=== PATIENT | male | born 1945 | race Caucasian/White ===

== ENCOUNTER 2016-10-26 20:50 | Emergency (ER) | payer BC, MEDICARE ==
[2016-10-26] MEDS ORDERED: 0.9 % SODIUM CHLORIDE 1,000 ML BAG IV ONE (22:05)
[2016-10-26] MEDS ORDERED: HYDROMORPHONE HCL 1 MG/ML CPJ IVP ONE ×2 (22:05→23:06)
[2016-10-26 22:43] LABS: HEMATOCRIT 43.7 % (42.0-52.0); MEAN CELL VOLUME 100.7 fl (81-97); MEAN CORPUSCULAR HGB CONC 34.3 g/dl (32-36); MEAN PLATELET VOLUME 9.1 fl (7.4-10.4); PLATELET COUNT 208 K/uL (130-400); RED BLOOD COUNT 4.34 M/uL (4.40-5.70); WHITE BLOOD COUNT W/O DIFF 14.5 K/uL (4.2-12.2)
[2016-10-26 22:51] LABS: MEAN CORPUSCULAR HEMOGLOBIN 34.5 pg (27-33)
[2016-10-26 23:04] LABS: ALBUMIN 4.2 gm/dL (3.5-5.0); ALKALINE PHOSPHATASE 99 U/L (38-126); ALT/SGPT 28 U/L (21-72); ANION GAP 10.3 (7-16); AST/SGOT 18 U/L (17-59); BLOOD UREA NITROGEN 22 mg/dL (9-20); CARBON DIOXIDE 28.7 mmol/L (22-30); CREATININE 1.1 mg/dL (0.66-1.25); EST GLOMERULAR FILTRATION RATE > 60 ml/min; GLUCOSE,RANDOM 139 mg/dL (70-110); LIPASE 59 U/L (23-300); TOTAL PROTEIN 7.2 gm/dL (6.3-8.2)
[2016-10-27] MEDS ORDERED: KETOROLAC 30 MG/ML VIAL IVP ONE (01:04)
[2016-10-27 01:26] LABS: URINE APPEARANCE CLEAR; URINE BILIRUBIN NEGATIVE (NEGATIVE); URINE BLOOD LARGE (NEGATIVE); URINE COLOR YELLOW; URINE GLUCOSE (UA) NEGATIVE (NEGATIVE); URINE KETONE NEGATIVE (NEGATIVE); URINE LEUKOCYTE ESTERASE NEGATIVE (NEGATIVE); URINE NITRITE NEGATIVE (NEGATIVE); URINE PROTEIN NEGATIVE (NEGATIVE); URINE UROBILINOGEN 0.2 E.U./dL (0.20 - 1.00)
[2016-10-27 01:37] LABS: URINE RBC 21 - 35 (NONE SEEN)
[2016-10-27 01:38] LABS: URINE WBC 0 - 2 (0-2/hpf)
[2016-10-27] MEDS ORDERED: ALBUTEROL SULFATE (0.083%) 2.5 MG/3 ML NEB INH ONE (01:45)
--- NOTE | 2016-10-27 02:06 | Emergency Department Record ---
History of Present Illness - General Chief Complaint: Abdominal Pain Stated Complaint: SHARP PAIN IN RT SIDE Time Seen by Provider: 10/26/16 22:00 Source: Patient Mode of Arrival: Ambulatory Limitations: No limitations - History of Present Illness Initial Comments: pt has severe ruq pain since eating a cheeseburger. he has nausea and had a bout of diarrhea. MD Complaint: Abdominal pain Onset/Timin -: Hour(s) Location: RUQ Radiation: None Migration to: No migration Severity: Moderate Quality: Sharp Consistency: Constant Improves With: Nothing Worsens With: Nothing Associated Symptoms: Nausea - Related Data Home Medications Medication Instructions Recorded Confirmed Last Taken Aspirin 81 mg PO DAILY 10/26/16 10/26/16 Unknown Atorvastatin Calcium 40 mg PO QPM 10/26/16 10/26/16 Unknown Citalopram Hydrobromide 40 mg PO DAILY 10/26/16 10/26/16 Unknown [Citalopram HBr] Clonazepam 0.5 mg PO QHS 10/26/16 10/26/16 Unknown Clopidogrel Bisulfate [Plavix] 75 mg PO DAILY 10/26/16 10/26/16 Unknown Fluticasone/Salmeterol 250/50 1 each IH Q12H 10/26/16 10/26/16 Unknown [Advair 250/50] Fosinopril Sodium [Monopril] 20 mg PO QAM 10/26/16 10/26/16 Unknown Gabapentin [Neurontin] 300 mg PO TID 10/26/16 10/26/16 Unknown Metformin HCl [Glucophage Xr] 750 mg PO DAILY 10/26/16 10/26/16 Unknown Methotrexate [Xatmep] 2.5 mg PO WEEKLY 10/26/16 10/26/16 Unknown Metoprolol Succinate [Toprol Xl] 50 mg PO DAILY 10/26/16 10/26/16 Unknown Nitroglycerin [Nitrostat] 0.4 mg SL ASDIR 10/26/16 10/26/16 Unknown Prednisone [Prednisone 5Mg] 5 mg PO DAILY 10/26/16 10/26/16 Unknown Primidone 100 mg PO QAM 10/26/16 10/26/16 Unknown Primidone 150 mg PO QPM 10/26/16 10/26/16 Unknown Tiotropium [place] [Spiriva 1 puff IH DAILY 10/26/16 10/26/16 Unknown Respimat] Previous Rx's Medication Instructions Recorded Acetaminop W/ Codeine 300/30Mg 1 tab PO Q6H #14 tab 10/27/16 [Tylenol #3] Docusate Sodium [Colace] 100 mg PO QHS #20 cap 10/27/16 Allergies Allergy/AdvReac Type Severity Reaction Status Date / Time hydrocodone [From Vicodin] Allergy TACHYCARDIA Verified 10/26/16 21:41 Travel Screening - Travel/Exposure Within Last 30 Days Have you traveled within the last 30 days?: No - Travel/Exposure Within Last Year Have you traveled outside the [place] in the last year?: No - Additonal Travel Details Have you been exposed to anyone with a communicable illness?: No - Travel Symptoms Symptom Screening: None Review of Systems Reviewed: No additional complaints except as noted below Constitutional: Reports: As per HPI. Denies: Chills, Fever, Malaise, Night sweats, Weakness, Weight change Eyes: Reports: As per HPI. Denies: Eye discharge, Eye pain, Photophobia, Vision change ENT: Reports: As per HPI. Denies: Congestion, Dental pain, Ear pain, Epistaxis , Hearing loss, Throat pain Respiratory: Reports: As per HPI. Denies: Cough, Dyspnea, Hemoptysis, Stridor, Wheezes Cardiovascular: Reports: As per HPI. Denies: Arrhythmia, Chest pain, Dyspnea on exertion, Edema, Murmurs, Orthopnea, Palpitations, Paroxysmal nocturnal dyspnea, Rheumatic Fever, Syncope Endocrine: Reports: As per HPI. Denies: Fatigue, Heat or cold intolerance, Polydipsia, Polyuria Gastrointestinal: Reports: As per HPI. Denies: Abdominal pain, Constipation, Diarrhea, Hematemesis, Hematochezia, Melena, Nausea, Vomiting Genitourinary: Reports: As per HPI. Denies: Dysuria, Frequency, Hematuria, Incontinence, Retention, Testicular pain, Testicular mass, Urgency Musculoskeletal: Reports: As per HPI. Denies: Arthralgia, Back pain, Gout, Joint swelling, Myalgia, Neck pain Skin: Reports: As per HPI. Denies: Bruising, Change in color, Change in hair/ nails, Lesions, Pruritus, Rash Neurological: Reports: As per HPI. Denies: Abnormal gait, Confusion, Headache, Numbness, Paresthesias, Seizure, Tingling, Tremors, Vertigo, Weakness Psychiatric: Reports: As per HPI. Denies: Anxiety, Auditory hallucinations, Depression, Homicidal thoughts, Suicidal thoughts, Visual hallucinations Hematological/Lymphatic: Reports: As per HPI. Denies: Anemia, Blood Clots, Easy bleeding, Easy bruising, Swollen glands Past Medical History - SOCIAL HISTORY Smoking Status: Current every day smoker Alcohol Use: None Drug Use: None - RESPIRATORY Hx Respiratory Disorders: No - CARDIOVASCULAR Hx Cardio Disorders: Yes Comment:: "main artery aneurysm" - NEURO Hx Neuro Disorders: Yes Hx CVA: Yes (1995 "mini stroke") - GI Hx GI Disorders: Yes Hx Diverticulitis: Yes - Hx Genitourinary Disorders: Yes Hx Kidney Stones: Yes - ENDOCRINE Hx Endocrine Disorders: Yes Hx Diabetes: Yes - MUSCULOSKELETAL Hx Musculoskeletal Disorders: Yes Hx Arthritis: Yes - PSYCH Hx Psych Problems: Yes Hx Depression: Yes - HEMATOLOGY/ONCOLOGY Hx Hematology/Oncology Disorders: No Family Medical History Any Significant Family History?: No Physical Exam - General General Appearance: Alert, Oriented x3, Cooperative, Mild distress - Head Head exam: Normal inspection - Eye Eye exam: Normal appearance, PERRL, EOMI Pupils: Normal accommodation - ENT ENT exam: Normal exam, Mucous membranes moist, Normal external ear exam, Normal orophraynx Ear exam: Normal external inspection. negative: External canal tenderness Nasal Exam: Normal inspection. negative: Discharge, Sinus tenderness Mouth exam: Normal external inspection, Tongue normal Teeth exam: Normal inspection. negative: Dental caries Throat exam: Normal inspection. negative: Tonsillar erythema, Tonsillar exudate - Neck Neck exam: Normal inspection, Full ROM. negative: Tenderness - Respiratory Respiratory exam: Normal lung sounds bilaterally. negative: Respiratory distress - Cardiovascular Cardiovascular Exam: Regular rate, Normal rhythm, Normal heart sounds - GI/Abdominal GI/Abdominal exam: Soft, Normal bowel sounds, Tenderness (ruq) - Rectal Rectal exam: Deferred - exam: Deferred - Extremities Extremities exam: Normal inspection, Full ROM, Normal capillary refill. negative: Tenderness - Back Back exam: Reports: Normal inspection, Full ROM. Denies: Muscle spasm, Rash noted, Tenderness - Neurological Neurological exam: Alert, CN II-XII intact, Normal gait, Oriented X3 - Psychiatric Psychiatric exam: Normal affect, Normal mood - Skin Skin exam: Dry, Intact, Normal color, Warm Course Vital Signs 10/26/16 10/26/16 10/27/16 21:29 23:06 00:08 Temperature 97.7 F Pulse Rate 60 Pulse Rate [ 60 60 Pulse Ox Probe] Respiratory 20 20 20 Rate Blood Pressure 143/82 Blood Pressure 142/68 136/76 [Left Arm] Pulse Ox 92 L 95 97 10/27/16 01:49 Temperature Pulse Rate 60 Pulse Rate [ Pulse Ox Probe] Respiratory 20 Rate Blood Pressure Blood Pressure [Left Arm] Pulse Ox - Reevaluation(s) Reevaluation #1: 10/27/16 02:03 pt feels better and wants to try it at home. pt told 6mm unlikely to pass but pt wants to try. pt told he can come back at any time Reevaluation #2: 10/27/16 02:16 pt states he can take tyl 3 Medical Decision Making - Lab Data Result diagrams: 10/26/16 22:20 10/26/16 22:20 Lab Results 10/26/16 10/26/16 10/27/16 Range/Units 22:20 22:20 01:20 WBC 14.5 H (4.2-12.2) K/uL RBC 4.34 L (4.40-5.70) M/uL Hgb 15.0 (14.0-18.0) gm/dl Hct 43.7 (42.0-52.0) % MCV 100.7 H (81-97) fl MCH 34.5 H (27-33) pg MCHC 34.3 (32-36) g/dl RDW 16.0 H (11.5-14.5) % Plt Count 208 (130-400) K/uL MPV 9.1 (7.4-10.4) fl Neutrophils % 83.0 H (47-80) % Band Neutrophils % 0.0 (0-5) % Eosinophils % Not Reportable Basophils % Not Reportable Lymphocytes 10.0 L (16-45) % Monocytes 7.0 (0-9) % Basophils 0.0 (0-6) % Eosinophil Count 0.0 (0-6) % Sodium 140 (136-145) mmol/L Potassium 4.3 (3.5-5.1) mmol/L Chloride 101 (98-107) mmol/L Carbon Dioxide 28.7 (22-30) mmol/L Anion Gap 10.3 (7-16) BUN 22 H (9-20) mg/dL Creatinine 1.1 (0.66-1.25) mg/dL Estimated GFR > 60 ml/min Random Glucose 139 H (70-110) mg/dL Calcium 9.4 (8.5-10.1) mg/dL Total Bilirubin 0.70 (0.2-1.3) mg/dL Direct Bilirubin 0.0 (0-0.3) mg/dL AST 18 (17-59) U/L ALT 28 (21-72) U/L Alkaline Phosphatase 99 (38-126) U/L Total Protein 7.2 (6.3-8.2) gm/dL Albumin 4.2 (3.5-5.0) gm/dL Lipase 59 (23-300) U/L Urine Color Yellow Urine Appearance Clear Urine pH 5.5 (5.0-8.0) Ur Specific [place] 1.015 (1.002-1.030) Urine Protein Negative (NEGATIVE) Urine Glucose (UA) Negative (NEGATIVE) Urine Ketones Negative (NEGATIVE) Urine Blood Large H (NEGATIVE) Urine Nitrite Negative (NEGATIVE) Urine Bilirubin Negative (NEGATIVE) Urine Urobilinogen 0.2 (0.20 - 1.00) E.U./dL Ur Leukocyte Esterase Negative (NEGATIVE) Urine RBC 21 - 35 (NONE SEEN) Urine WBC 0 - 2 (0-2/hpf) Ur Epithelial Cells 3 - 6 (FEW) Disposition Disposition: Discharge Clinical Impression: Renal lithiasis Disposition: Home, Self-Care Condition: (1) Good Instructions: Kidney Stones (ED), How to Strain Your Urine (ED) Additional Instructions: follow up with dr larson on friday. return sooner if worse Prescriptions: Docusate Sodium [Colace] 100 mg PO QHS #20 cap Acetaminop W/ Codeine 300/30Mg [Tylenol #3] 1 tab PO Q6H #14 tab Referrals: TAVO LARSON M.D. [MEDICAL DOCTOR] - [facility] [Provider Group] Forms: Patient Portal Access Quality - Quality Measures Quality Measures: N/A - Blood Pressure Screening Blood Pressure Classification: Pre-Hypertensive BP Reading Systolic Measurement: 143 Diastolic Measurement: 82 Screening for High Blood Pressure: < Pre-Hypertensive BP, F/U Documented > [ G8950] Pre-Hypertensive Follow-up Interventions: Referral to alternative/primary care provider.
[2016-10-27] MEDS ORDERED: ACETAMINOPHEN W/ CODEINE 300MG/30MG TABLET PO ONE (02:17)
--- NOTE | 2016-10-29 06:27 | CT SCAN REPORT ---
DATE: 10/26/2016. EXAM: CT OF THE ABDOMEN AND PELVIS WITH CONTRAST. HISTORY: Right upper quadrant pain. TECHNIQUE: CT of the abdomen and pelvis was performed following IV administration of 100 mL of Omnipaque 300 contrast. Oral contrast was also utilized. COMPARISON: None. FINDINGS: Limited evaluation of the lung bases is unremarkable. Osseous structures are grossly intact. Diffuse fatty infiltrative change to the liver. Subcentimeter hypodensities scattered about the liver likely relate to tiny cysts. These are too small to further characterize. The spleen, adrenal glands , and pancreas are unremarkable. Bilateral renal cysts are noted. The gallbladder is present. Moderate right-sided hydronephrosis with right perinephric inflammatory changes secondary to an approximately 5.4 mm obstructing mid right ureteral calculus. Simple appearing renal cysts are noted bilaterally. The kidneys are otherwise unremarkable. No gross evidence for bowel obstruction. No free air or free fluid. Atheromatous change of the abdominal aorta. There is an infrarenal abdominal aortic aneurysm measuring 3.0 cm AP x 2.9 cm transverse. Ectasia of the abdominal aorta. Normal appendix. Sigmoid diverticulosis without CT evidence for diverticulitis. Fat- containing inguinal hernias bilaterally. No free air or free fluid. IMPRESSION: 1. MODERATE RIGHT HYDRONEPHROSIS AND HYDROURETER WITH PERINEPHRIC INFLAMMATORY CHANGE SECONDARY TO A 5.4 MM MID RIGHT URETERAL CALCULUS. 2. INFRARENAL ABDOMINAL AORTIC ANEURYSM WITH ECTASIA OF THE ABDOMINAL AORTA. ANEURYSM MEASURES 3.0 X 2.9 CM. 3. FATTY INFILTRATIVE CHANGE TO THE LIVER. SUBCENTIMETER HEPATIC CYSTS ARE NOTED. 4. BILATERAL RENAL CYSTS. 5. SIGMOID DIVERTICULOSIS. NO CT EVIDENCE FOR DIVERTICULITIS. JOB NUMBER: [id number] [facility]
== END 2016-10-27 02:32 | disposition home or self-care (01) ==
LOC: ER 20:50
DX: N13.2 Hydronephrosis with renal and ureteral calculous obstruction (principal); R11.0 Nausea; R19.7 Diarrhea, unspecified; Z87.442 Personal history of urinary calculi
CPT/HCPCS: 99284 ×2; 96376; 96374; 96375; 83690; 80076; 80048; 81001; 85027; 74177; 94640; Q9967; J1885; J1170; J7030; J7613

== ENCOUNTER 2016-12-09 12:08 | Emergency (ER) | payer BC, MEDICARE ==
[2016-12-09] MEDS ORDERED: ONDANSETRON HCL IV 4 MG/2 ML VIAL IV ONE (12:24)
[2016-12-09] MEDS ORDERED: 0.9 % SODIUM CHLORIDE 1,000 ML BAG IV ONE (12:24)
[2016-12-09] MEDS ORDERED: HYDROMORPHONE HCL 1MG/ML **SYRINGE IVP ONE (12:25)
--- NOTE | 2016-12-09 12:33 | Emergency Department Record ---
History of Present Illness - General Chief complaint: Flank Pain Stated complaint: FLANK PAIN Time Seen by Provider: 12/09/16 12:20 Source: Patient Mode of Arrival: Ambulatory Limitations: No limitations - History of Present Illness Initial comments: The patient is here due to a one day hx of sharp stabbing R flank pain. The pain is nonradiating and worse with any movement, twisting, or bending. He denies any AP, nausea, vomiting, dysuria, or hematuria. The patient states he has a hx of a kidney stone similar to this about 6 weeks ago and did have a stent placed which has since been removed. Complaint: Other Onset/Timin -: Days(s) Location: Right flank Severity: Severe Severity scale (1-10): 8 Quality: Sharp, Stabbing Consistency: Constant Improves with: None Worsens with: None Reports: Denies other symptoms - Related Data Home Medications Medication Instructions Recorded Confirmed Last Taken Aspirin 81 mg PO DAILY 10/26/16 12/09/16 Unknown Atorvastatin Calcium 40 mg PO QPM 10/26/16 12/09/16 Unknown Citalopram Hydrobromide 40 mg PO DAILY 10/26/16 12/09/16 12/09/16 [Citalopram HBr] Clonazepam 0.5 mg PO QHS 10/26/16 12/09/16 Unknown Fluticasone/Salmeterol 250/50 1 each IH Q12H 10/26/16 12/09/16 Unknown [Advair 250/50] Fosinopril Sodium [Monopril] 20 mg PO QAM 10/26/16 12/09/16 12/09/16 Gabapentin [Neurontin] 300 mg PO DAILY 10/26/16 12/09/16 12/09/16 Metformin HCl [Glucophage Xr] 750 mg PO DAILY 10/26/16 12/09/16 12/09/16 Methotrexate [Xatmep] 2.5 mg PO WEEKLY 10/26/16 12/09/16 Unknown Metoprolol Succinate [Toprol Xl] 50 mg PO DAILY 10/26/16 12/09/16 12/09/16 Nitroglycerin [Nitrostat] 0.4 mg SL ASDIR 10/26/16 12/09/16 Unknown Primidone 100 mg PO QAM 10/26/16 12/09/16 12/09/16 Primidone 150 mg PO QPM 10/26/16 12/09/16 Unknown Tiotropium [place] [Spiriva 1 puff IH DAILY 10/26/16 12/09/16 Unknown Respimat] Allergies Allergy/AdvReac Type Severity Reaction Status Date / Time hydrocodone [From Vicodin] Allergy TACHYCARDIA Verified 10/26/16 21:41 Travel Screening - Travel/Exposure Within Last 30 Days Have you traveled within the last 30 days?: No Review of Systems Constitutional: Denies: Chills, Fever Eyes: Denies: Eye discharge ENT: Denies: Congestion Respiratory: Denies: Cough, Dyspnea Past Medical History - SOCIAL HISTORY Smoking Status: Current every day smoker Alcohol Use: None Drug Use: None - RESPIRATORY Hx Respiratory Disorders: Yes Hx COPD: Yes - CARDIOVASCULAR Hx Cardio Disorders: Yes Hx Hypertension: Yes Comment:: "main artery aneurysm" - NEURO Hx Neuro Disorders: Yes Hx CVA: Yes (1995 "mini stroke") - GI Hx GI Disorders: Yes Hx Diverticulitis: Yes - Hx Genitourinary Disorders: Yes Hx Kidney Stones: Yes - ENDOCRINE Hx Endocrine Disorders: Yes Hx Diabetes: Yes - MUSCULOSKELETAL Hx Musculoskeletal Disorders: Yes Hx Arthritis: Yes - PSYCH Hx Psych Problems: Yes Hx Depression: Yes - HEMATOLOGY/ONCOLOGY Hx Hematology/Oncology Disorders: No Family Medical History Any Significant Family History?: Yes Hx Cancer: Mother Hx Heart Disease: Father Hx Stroke: Father, Brother/Sister Physical Exam - General General Appearance: Alert, Oriented x3, Cooperative, Mild distress (due to R flank pain.) - Head Head exam: Atraumatic, Normocephalic, Normal inspection - Eye Eye exam: Normal appearance, PERRL - Neck Neck exam: Normal inspection, Full ROM. negative: Tenderness - Respiratory Respiratory exam: Normal lung sounds bilaterally. negative: Respiratory distress - Cardiovascular Cardiovascular Exam: Regular rate, Normal rhythm, Normal heart sounds - GI/Abdominal GI/Abdominal exam: Soft, Normal bowel sounds. negative: Distended, Rebound, Rigid, Tenderness - Extremities Extremities exam: Normal inspection, Full ROM, Normal capillary refill. negative: Tenderness - Back Back exam: Reports: Normal inspection, Paraspinal tenderness (The pain is 100% reproducible with palpation of the R upper paraspinal muscle area.). Denies: Vertebral tenderness Image of Body Front/Back: 1 - Location of the pain and tenderness. Neg for any rashes or lesions or swelling. Course Vital Signs 12/09/16 12:11 Temperature 97.6 F Pulse Rate 66 Respiratory 20 Rate Blood Pressure 128/96 Pulse Ox 94 L - Reevaluation(s) Reevaluation #1: The patient is doing very well at this time. He is pain free and resting comfortably. On exam his abdomen is soft and nontender in all 4 quads. I did explain to him the CT does not demonstrate any ureter or kidney stone and no hydro. It does have some chronic changes but nothing acute. 12/09/16 13:38 Reevaluation #2: The patient is doing very well at this time. He did have the return of some mild flank pain but that is gone now. I did explain to him that his evaluation with the CT and labs did not point to any specific cause for the pain. We did find that the patient is mildly anemic and his blood sugar is very mildly elevated. He is to take his home pain medicines and see his PCP later this week for recheck. 12/09/16 14:48 Medical Decision Making - Data Complexity MDM Data: Labs Ordered and/or Reviewed, X-Ray Ordered and/or Reviewed - Lab Data Result diagrams: 12/09/16 12:40 12/09/16 12:40 - Radiology Data Radiology results: Report reviewed (CT: No acute changes, hydro, ureter or kidney stones. Neg Appy, or diverticulitis. Chronic and stable R kidney and aorta issues.) Disposition Disposition: Discharge Clinical Impression: Flank pain, acute Disposition: Home, Self-Care Condition: (1) Good Instructions: Flank Pain (ED) Additional Instructions: Please take your home pain medicines as needed and drink plenty of fluids with no sugar added. Please see your PCP for recheck later this week. Return to the ER for any increased pain, nausea, vomiting, fever, or urinating blood. Forms: Patient Portal Access Time of Disposition: 14:47 Quality - Quality Measures Quality Measures: N/A - Blood Pressure Screening View Details: Yes Does Patient Have Any of the Following: No Blood Pressure Classification: Hypertensive Reading Systolic Measurement: 128 Diastolic Measurement: 96 Screening for High Blood Pressure: < Pre-Hypertensive BP, F/U Documented > [ G8950] Pre-Hypertensive Follow-up Interventions: Referral to alternative/primary care provider.
[2016-12-09 12:49] LABS: BASO % 0.3 % (0-6); EOS % 2.3 % (0-6); HEMATOCRIT 41.8 % (42.0-52.0); HEMOGLOBIN 13.8 gm/dl (14.0-18.0); LYMPH % 15.9 % (16-45); MEAN CELL VOLUME 102.7 fl (81-97); MEAN CORPUSCULAR HEMOGLOBIN 33.9 pg (27-33); MONO % 7.5 % (0-9); PLATELET COUNT 224 K/uL (130-400); RED BLOOD COUNT 4.07 M/uL (4.40-5.70); RED CELL DISTRIBUTION WIDTH 15.2 % (11.5-14.5); WHITE BLOOD COUNT W/O DIFF 7.3 K/uL (4.2-12.2)
[2016-12-09 12:59] LABS: ALKALINE PHOSPHATASE 100 U/L (38-126); ALT/SGPT 45 U/L (21-72); AST/SGOT 25 U/L (17-59); BILIRUBIN,TOTAL 0.61 mg/dL (0.2-1.3); BLOOD UREA NITROGEN 17 mg/dL (9-20); CREATININE 0.8 mg/dL (0.66-1.25); EST GLOMERULAR FILTRATION RATE > 60 ml/min; GLUCOSE,RANDOM 209 mg/dL (70-110); TOTAL PROTEIN 6.6 gm/dL (6.3-8.2)
[2016-12-09 14:40] LABS: URINE APPEARANCE CLEAR; URINE BILIRUBIN NEGATIVE (NEGATIVE); URINE BLOOD NEGATIVE (NEGATIVE); URINE COLOR YELLOW; URINE KETONE TRACE (NEGATIVE); URINE LEUKOCYTE ESTERASE NEGATIVE (NEGATIVE); URINE NITRITE NEGATIVE (NEGATIVE); URINE PROTEIN NEGATIVE (NEGATIVE); URINE UROBILINOGEN 0.2 E.U./dL (0.20 - 1.00)
--- NOTE | 2016-12-10 16:14 | CT SCAN REPORT ---
EXAM: CT SCAN ABDOMEN/PELVIS WO CONTRAST HISTORY: RIGHT LOWER QUADRANT PAIN. TECHNIQUE: Sequential axial images were obtained from the diaphragms through the ischiorectal fossa without oral or intravenous contrast administration. FINDINGS: The visualized lung bases appear normal. The liver, gallbladder, pancreas, and spleen appear normal. The adrenal glands and kidneys appear normal. There is an exophytic cyst in the right kidney measuring 5.3 cm. The small bowel appears normal. The appendix is visualized and appears normal. There is sigmoid colon diverticulosis. No evidence of diverticulitis. There is a stable infrarenal abdominal aortic aneurysm measuring 3 cm x 2.6 cm. There is degenerative change of the lumbar spine. IMPRESSION: 1. SIGMOID COLON DIVERTICULOSIS. NO EVIDENCE OF DIVERTICULITIS. 2. THE APPENDIX IS VISUALIZED AND APPEARS NORMAL. 3. STABLE EXOPHYTIC CYST IN THE RIGHT KIDNEY MEASURING 5.3 CM. 4. STABLE DISTAL ABDOMINAL AORTIC ANEURYSM MEASURING 3 X 2.6 CM. JOB NUMBER: [id number] [facility]
== END 2016-12-09 14:56 | disposition home or self-care (01) ==
LOC: ER 12:08
DX: R10.9 Unspecified abdominal pain (principal); M54.89 Other dorsalgia; E11.9 Type 2 diabetes mellitus without complications; Z79.84 Long term (current) use of oral hypoglycemic drugs; F17.210 Nicotine dependence, cigarettes, uncomplicated; Z87.442 Personal history of urinary calculi
CPT/HCPCS: 99284 ×2; 96374; 96375; 96361; 85025; 80076; 80048; 81003; 74176; J2405; J1170; J7030

== ENCOUNTER 2017-02-06 16:13 | Emergency (ER) | payer BC, MEDICARE ==
--- NOTE | 2017-02-06 16:32 | Emergency Department Record ---
History of Present Illness - General Stated Complaint: HEAD INJURY Time Seen by Provider: 02/06/17 16:25 Source: Patient Mode of Arrival: Ambulatory Limitations: No limitations - History of Present Illness Initial Comments: 71 yo male presents with neck pain. He fell at 11pm last night. He tripped while walking in the dark. His head hit the grandfather clock. He denies any current headache. No dizziness. No nausea or vomiting. He has neck stiffness today. He went about his normal routine today, went out to lunch at [employer] without nausea or vomiting. No chest, back or abdominal tenderness. No extremity pain. He recalls all events of the fall and events of today. MD Complaint: Fall -: Days(s) (Last night) Fall From: Standing When Fall Occurred: Other (11 pm) Place Fall Occurred: Home Loss of Consciousness: None Prolonged Down Time?: No Symptoms Prior to Fall: None Location: Head, Neck Severity: Moderate Quality: Aching Associated Symptoms: Denies - [place]ita Coma Scale Eye Response: (4) Open spontaneously Motor Response: (6) Obeys commands Verbal Response: (5) Oriented [place] Total: 15 - Related Data Home Medications Medication Instructions Recorded Confirmed Last Taken Allopurinol [Zyloprim] 100 mg PO DAILY 02/06/17 02/06/17 Unknown Folic Acid 1 mg PO DAILY 02/06/17 02/06/17 Unknown Allergies Allergy/AdvReac Type Severity Reaction Status Date / Time hydrocodone [From Vicodin] Allergy TACHYCARDIA Verified 02/06/17 16:28 Review of Systems Constitutional: Denies: Chills, Fever, Malaise, Weakness Eyes: Denies: Eye discharge, Eye pain, Photophobia, Vision change ENT: Denies: Congestion, Throat pain Respiratory: Denies: Cough Cardiovascular: Denies: Chest pain, Palpitations, Syncope Endocrine: Denies: Fatigue Gastrointestinal: Denies: Abdominal pain, Diarrhea, Nausea, Vomiting Musculoskeletal: Reports: Neck pain. Denies: Arthralgia, Back pain, Joint swelling, Myalgia Skin: Reports: Bruising. Denies: Change in color, Rash Neurological: Denies: Abnormal gait, Confusion, Headache, Numbness, Paresthesias , Tingling, Tremors, Vertigo, Weakness Psychiatric: Denies: Anxiety Hematological/Lymphatic: Denies: Blood Clots, Easy bleeding, Easy bruising, Swollen glands Past Medical History - SOCIAL HISTORY Smoking Status: Current every day smoker Drug Use: None - RESPIRATORY Hx Respiratory Disorders: Yes Hx COPD: Yes - CARDIOVASCULAR Hx Cardio Disorders: Yes Hx Hypertension: Yes Comment:: "main artery aneurysm" - NEURO Hx Neuro Disorders: Yes Hx CVA: Yes (1995 "mini stroke") - GI Hx GI Disorders: Yes Hx Diverticulitis: Yes - Hx Genitourinary Disorders: Yes Hx Kidney Stones: Yes - ENDOCRINE Hx Endocrine Disorders: Yes Hx Diabetes: Yes - MUSCULOSKELETAL Hx Musculoskeletal Disorders: Yes Hx Arthritis: Yes - PSYCH Hx Psych Problems: Yes Hx Depression: Yes - HEMATOLOGY/ONCOLOGY Hx Hematology/Oncology Disorders: No Family Medical History Hx Cancer: Mother Hx Heart Disease: Father Hx Stroke: Father, Brother/Sister Physical Exam - General General Appearance: Alert, Oriented x3, Cooperative, No acute distress Limitations: No limitations - Head Head exam: negative: Atraumatic, Normal inspection Head exam detail: Abrasion Image of Face/Head: 1 - abrasion - Eye Eye exam: Normal appearance, PERRL, EOMI. negative: Conjunctival injection, Periorbital swelling, Scleral icterus Pupils: Normal accommodation. negative: Irregular, Unequal - ENT ENT exam: Normal exam, Mucous membranes moist Ear exam: Normal external inspection Nasal Exam: Normal inspection Mouth exam: Normal external inspection Throat exam: Normal inspection - Neck Neck exam: Normal inspection, Tenderness. negative: Lymphadenopathy - Respiratory Respiratory exam: Normal lung sounds bilaterally. negative: Respiratory distress - Cardiovascular Cardiovascular Exam: Regular rate, Normal rhythm, Normal heart sounds Peripheral Pulses: 2+: Radial (R), Radial (L) - GI/Abdominal GI/Abdominal exam: Soft. negative: Tenderness - Rectal Rectal exam: Deferred - exam: Deferred - Extremities Extremities exam: Normal inspection, Full ROM, Normal capillary refill. negative: Tenderness - Back Back exam: Reports: Normal inspection, Full ROM. Denies: CVA tenderness (R), CVA tenderness (L), Muscle spasm, Paraspinal tenderness, Rash noted, Tenderness , Vertebral tenderness - Neurological Neurological exam: Alert, CN II-XII intact, Normal gait, Oriented X3. negative : Altered, Motor sensory deficit - Psychiatric Psychiatric exam: Normal affect, Normal mood. negative: Agitated, Anxious - Skin Skin exam: Dry, Intact, Normal color, Warm Course - Reevaluation(s) Reevaluation #1: Per the [facility] the patient had confusion. The patient is a full historian with full memory of last nights events and todays. He appears clean and well kept, His short term and fpc memory is intact. He is very conversational. No repeating of conversation. He stays on track without any tangential thoughts. He is not exhibiting any abnormal symptoms in the ED. He is appropriate and reliable. 02/06/17 16:39 02/06/17 16:49 The is in the ED She states he is at his baseline. She givens the same historic time line of events and the same events surrounding the injury. 02/06/17 17:[address] scans of the head and neck were negative for any acute changes DC home with his with recommendations for close follow up 02/06/17 17:21 Son is in the ED and also agrees the patient is completely normal and at his baseline The patient has been completely normal in the ED Disposition Disposition: Discharge Clinical Impression: Head contusion, Neck sprain Disposition: Home, Self-Care Condition: (1) Good Instructions: Concussion (ED), Cervical Strain (ED) Additional Instructions: REturn if you have any new symptoms or concerns No driving until your neck pain and Head ache are completely gone Follow up with your doctor this week Time of Disposition: 17:19 Quality - Quality Measures Quality Measures: N/A - Blood Pressure Screening Does Patient Have Any of the Following: No Blood Pressure Classification: Normal BP Reading Systolic Measurement: 117 Diastolic Measurement: 76 Screening for High Blood Pressure: < Normal BP, F/U Not Required > [G8783]
[2017-02-06] MEDS ORDERED: ACETAMINOPHEN 500 MG TABLET PO ONE (17:18)
--- NOTE | 2017-02-08 09:19 | CT SCAN REPORT ---
DATE: 02/06/2017. EXAM: CT OF THE BRAIN. HISTORY: Fall. TECHNIQUE: CT of the brain without contrast. COMPARISON: None. FINDINGS: Globes are intact. Paranasal sinuses and mastoid air cells are unremarkable. No displaced or depressed skull fracture. No intra- or extra- axial hemorrhage. CT limited for evaluation of acute infarct. No CT evidence for large or territorial acute infarct. No mass or midline shift. Mild, diffuse atrophy. Hypodensities in the periventricular and cortical white matter consistent with sequelae of small-vessel ischemic change. IMPRESSION: ATROPHY. SMALL-VESSEL ISCHEMIC CHANGE. JOB NUMBER: [id number] MTDD
--- NOTE | 2017-02-08 09:23 | CT SCAN REPORT ---
DATE: 02/06/2017. EXAM: CT OF THE CERVICAL SPINE. HISTORY: Fall. TECHNIQUE: Axial CT images of the cervical spine with coronal and sagittal reconstructions. COMPARISON: None. FINDINGS: Straightening of the normal lordosis which may relate to muscle spasm /strain. Evaluation of spinal canal content is limited due to CT technique. However, vertebral body height and alignment are otherwise preserved. There is no fracture, compression deformity, or subluxation. Minor multilevel degenerative change, greatest at the C5-6 level. Limited evaluation of the lung apices is unremarkable. IMPRESSION: NEGATIVE FOR ACUTE CERVICAL SPINE ABNORMALITY. JOB NUMBER: [id number] MTDD
== END 2017-02-06 17:34 | disposition home or self-care (01) ==
LOC: ER 16:13
DX: S13.9XXA Sprain of joints and ligaments of unspecified parts of neck, initial encounter (principal); S00.83XA Contusion of other part of head, initial encounter; W01.190A Fall on same level from slipping, tripping and stumbling with subsequent striking against furniture, initial encounter; Y92.009 Unspecified place in unspecified non-institutional (private) residence as the place of occurrence of the external cause
CPT/HCPCS: 70450; 72125; 99283; 99284

== ENCOUNTER 2018-05-12 16:56 | Emergency (ER) | payer MEDICARE, BC ==
[2018-05-12] MEDS ORDERED: METHYLPREDNISOLONE PF 125MG/VIAL IVP ONE (16:59)
[2018-05-12] MEDS ORDERED: IPRATROPIUM/ALBUTEROL (0.5MG/3MG) NEB INH ONE (16:59)
--- NOTE | 2018-05-12 17:05 | Emergency Department Record ---
History of Present Illness - General Chief Complaint: Chest Pain Stated Complaint: CHEST PAIN,KAVIN Time Seen by Provider: 05/12/18 16:58 Source: Patient, Family Mode of Arrival: Ambulatory Limitations: No limitations - History of Present Illness Initial Comments: 72 yo male presents with three hours of chest pain and shortness of breath. He woke up from a nap with the symptoms. He was not having any symptoms prior to napping. He is coughing, wheezing and states the pain goes across the chest. He has COPD, Aneurysms of the chest and abdomen, CAD with stents and continues to smoke. No home oxygen. No abdominal pain. He had cardiac stents in 2007, Pacer in 2009, Thoracic and abdominal aneurysm diagnosed in 2012. He thinks his last stress test was about 2 years ago[address] He sees Dr Dalal at [facility]. Complaint: Chest pain, Other (Short of breath) -: Hour(s) (3) Onset: During rest Pain Location: Substernal Pain Radiation: Other (Across chest) Severity: Moderate Quality: Aching Consistency: Constant Improves With: Nothing Worsens With: Other (Cough) Context: Other Anginal Symptoms: Dyspnea Other Symptoms: Cough - Related Data Home Medications Medication Instructions Recorded Confirmed Last Taken Prednisone 5 mg PO ASDIR 05/12/18 05/12/18 Unknown Previous Rx's Medication Instructions Recorded Acetaminop W/ Codeine 300/30Mg 1 tab PO Q6H #15 tab 07/27/17 [Tylenol #3] Allergies Allergy/AdvReac Type Severity Reaction Status Date / Time hydrocodone [From Vicodin] Allergy TACHYCARDIA Verified 05/12/18 17:07 Review of Systems Constitutional: Denies: Chills, Fever, Malaise, Weakness Eyes: Denies: Eye discharge ENT: Denies: Congestion, Throat pain Respiratory: Reports: Cough, Dyspnea. Denies: Hemoptysis, Stridor, Wheezes Cardiovascular: Reports: Chest pain Endocrine: Denies: Fatigue, Polydipsia, Polyuria Gastrointestinal: Denies: Abdominal pain, Diarrhea, Nausea, Vomiting Genitourinary: Denies: Dysuria, Frequency Musculoskeletal: Denies: Arthralgia, Back pain, Myalgia, Neck pain Skin: Denies: Bruising, Change in color, Rash Neurological: Denies: Confusion, Headache Psychiatric: Denies: Anxiety Hematological/Lymphatic: Denies: Blood Clots, Easy bleeding, Easy bruising, Swollen glands Past Medical History - SOCIAL HISTORY Smoking Status: Current every day smoker Drug Use: None - RESPIRATORY Hx Respiratory Disorders: Yes Hx COPD: Yes - CARDIOVASCULAR Hx Cardio Disorders: Yes Hx Hypertension: Yes Comment:: "main artery aneurysm" - NEURO Hx Neuro Disorders: Yes Hx CVA: Yes (1995 "mini stroke") - GI Hx GI Disorders: Yes Hx Diverticulitis: Yes - Hx Genitourinary Disorders: Yes Hx Kidney Stones: Yes - ENDOCRINE Hx Endocrine Disorders: Yes Hx Diabetes: Yes - MUSCULOSKELETAL Hx Musculoskeletal Disorders: Yes Hx Arthritis: Yes - PSYCH Hx Psych Problems: Yes Hx Depression: Yes - HEMATOLOGY/ONCOLOGY Hx Hematology/Oncology Disorders: No Family Medical History Hx Cancer: Mother Hx Heart Disease: Father Hx Stroke: Father, Brother/Sister Physical Exam - General General Appearance: Alert, Oriented x3, Anxious Limitations: No limitations - Head Head exam: Atraumatic, Normal inspection - Eye Eye exam: Normal appearance, PERRL. negative: Conjunctival injection Pupils: Normal accommodation Course - Reevaluation(s) Reevaluation #1: No old EKG 16:59 Atrial paced rhythm, rate is 62, intervals normal, axis L, No acute ST changes. 05/12/18 17:04 05/12/18 17:18 No acute changes on the CBC The wheezing is much improved after the [place]. 05/12/18 18:00 The CMP was reviewed No acute changes The Troponin is normal The CXR was read as no acute process. The patient appears much more relaxed. No signs if shortness of breath or pain 05/12/18 19:[address] of the chest was negative for dissection. He has an ascending aneurysm of 3.8cm and descending of 3.3. Atelectasis noted. 05/12/18 19:30 The patient and family were given the results of all the tests. His supervisor coil winding is through [facility]. He had stents placed in 2007, pacer place in 2009 and aneurysm diagnosed and followed since 2012. [facility] supervisor coil winding is located. His supervisor coil winding is Dr Dalal 05/12/18 19:43 I discussed the patient with Dr Mack of [facility] 05/12/18 20:01 The patient is comfortable but mild wheeze is returning. Medical Decision Making - Lab Data Result diagrams: 05/12/18 17:06 05/12/18 17:06 Disposition Disposition: Transfer Clinical Impression: Chest pain, Dyspnea Disposition: Acute Care Hospital Transfer Transfer To: [facility] Reason For Transfer: chest pain, copd Accepting Physician: Dr Mack Time Discussed w/Accepting Physician: 19:43 Condition: (2) Stable Forms: Patient Portal Access Time of Disposition: 19:32 Quality - Quality Measures Quality Measures: N/A - Blood Pressure Screening Does Patient Have Any of the Following: No Blood Pressure Classification: Pre-Hypertensive BP Reading Systolic Measurement: 126 Diastolic Measurement: 85 Screening for High Blood Pressure: < Pre-Hypertensive BP, F/U Documented > [ G8950] Pre-Hypertensive Follow-up Interventions: Referral to alternative/primary care provider.
[2018-05-12 17:13] LABS: BASO % 0.1 % (0-6); EOS % 1.1 % (0-6); GRAN % 77.4 % (47-80); HEMATOCRIT 44.5 % (42.0-52.0); HEMOGLOBIN 14.9 gm/dl (14.0-18.0); MEAN CELL VOLUME 101.4 fl (81-97); MEAN CORPUSCULAR HEMOGLOBIN 33.9 pg (27-33); MEAN CORPUSCULAR HGB CONC 33.5 g/dl (32-36); MEAN PLATELET VOLUME 8.8 fl (7.4-10.4); MONO % 7.4 % (0-9); PLATELET COUNT 208 K/uL (130-400); RED BLOOD COUNT 4.39 M/uL (4.40-5.70); RED CELL DISTRIBUTION WIDTH 14.6 % (11.5-14.5); WHITE BLOOD COUNT W/O DIFF 8.9 K/uL (4.2-12.2)
[2018-05-12] MEDS ORDERED: MORPHINE SULFATE 10 MG/ML VIAL IVP ONE ×3 (17:16→19:37)
[2018-05-12 17:26] LABS: PARTIAL THROMBOPLASTIN TIME 27.3 SECONDS (24.5-39.1); PROTHROMBIN TIME (PATIENT) 10.4 SECONDS (9.5-12.1)
[2018-05-12 17:27] LABS: BLOOD UREA NITROGEN 15 mg/dL (8-23); CREATININE 0.9 mg/dL (0.7-1.2); EST GLOMERULAR FILTRATION RATE > 60 mL/min
[2018-05-12 17:28] LABS: TOTAL PROTEIN 7.3 g/dL (6.6-8.7)
[2018-05-12 17:30] LABS: GLUCOSE,RANDOM 121 mg/dL (74-109)
[2018-05-12 17:32] LABS: ALB/GLOB RATIO 1.4 (1.1-1.8); ALBUMIN 4.3 g/dL (4.0-5.0); ALT/SGPT 35 U/L (<41); AST/SGOT 33 U/L (10.0-50.0)
[2018-05-12 17:33] LABS: ALKALINE PHOSPHATASE 106 U/L (55-149)
[2018-05-12] MEDS ORDERED: ASPIRIN 81 MG CHEWABLE TABLET PO ONE (19:29)
[2018-05-12] MEDS ORDERED: ALBUTEROL SULFATE (0.083%) 2.5 MG/3 ML NEB INH ONE (20:03)
--- NOTE | 2018-05-13 20:16 | RADIOLOGY REPORT ---
EXAM: CHEST 1 VIEW HISTORY: MIDLINE CHEST PAIN AND SHORTNESS OF BREATH. CONGESTIVE COUGH FOR THE PAST FOUR TO FIVE DAYS. TECHNIQUE: Two portable AP upright views of the chest were obtained. COMPARISON: Previous thoracic spine x-rays dated 07/27/2017. FINDINGS: A pacemaker is present. The heart is normal in size. There is mild tortuosity of the aorta. There is very minor atelectasis or infiltrate at the right lung base. The remaining lung chacko are clear. There is no pneumothorax or effusion. The bones appear intact. IMPRESSION: MINOR ATELECTASIS OR INFILTRATE AT THE RIGHT LUNG BASE. JOB NUMBER: [id number] MTDD
--- NOTE | 2018-05-13 20:55 | CT SCAN REPORT ---
EXAM: CT SCAN CHEST W CONTRAST HISTORY: SHARP CHEST PAIN. HISTORY OF ANEURYSM. TECHNIQUE: Standard CT imaging of the chest was performed with contrast. 100 mL of Omnipaque-300 were administered. COMPARISON: Previous abdominal CT scan dated 12/09/2016. FINDINGS: The heart is mildly enlarged. Coronary artery calcifications are present. Pacemaker leads are also present. The ascending aorta measures up to 3.8 cm in diameter. The descending aorta measures up to 3.3 cm in diameter. There are a few irregular calcified and noncalcified plaques within the descending aorta. There is no aneurysm or dissection. The pulmonary arterial tree appears normal. There is no mediastinal or hilar lymphadenopathy. Dependent atelectasis is present within both lungs, right greater than left. There are no acute infiltrates or effusions. There is no pneumothorax. The chest wall and axillary regions are normal. Degenerative changes are present within the spine. No acute osseous abnormalities are identified. An exophytic cyst is partially visualized off the posterior cortex of the right kidney and appears unchanged. The upper abdomen is otherwise unremarkable. IMPRESSION: 1. NO ACUTE INTRATHORACIC PATHOLOGY. THERE IS NO EVIDENCE FOR THORACIC AORTIC ANEURYSM OR DISSECTION. 2. DEPENDENT ATELECTASIS WITHIN BOTH LUNGS. 3. MILD CORONARY ARTERY CALCIFICATIONS. JOB NUMBER: [id number] [facility]
== END 2018-05-12 20:50 | disposition short-term general hospital (02) ==
LOC: ER 16:56
DX: R07.2 Precordial pain (principal); R06.2 Wheezing; J44.9 Chronic obstructive pulmonary disease, unspecified; I25.10 Atherosclerotic heart disease of native coronary artery without angina pectoris; E11.9 Type 2 diabetes mellitus without complications; I10 Essential (primary) hypertension; I71.4 Abdominal aortic aneurysm, without rupture; I71.2 Thoracic aortic aneurysm, without rupture; F17.210 Nicotine dependence, cigarettes, uncomplicated; Z95.5 Presence of coronary angioplasty implant and graft; Z95.0 Presence of cardiac pacemaker; Z79.84 Long term (current) use of oral hypoglycemic drugs
CPT/HCPCS: 99285 ×2; 96376; 96374; 96375; 85025; 85730; 85610; 80053; 84484; 83880; 71045; 71260; 94640 ×2; 93005; 93010; Q9967; J2270; J2930; J7613